=== PATIENT | male | born 1945 | race Caucasian/White ===

== ENCOUNTER 2019-01-11 19:28 | Outpatient (CLI) | payer MEDICARE | END 2019-01-11 19:29 | disposition critical access hospital (66) | LOC: EMS 19:28 | PROVIDERS: ATTEND Surgery | DX: R42 Dizziness and giddiness (principal); L29.9 Pruritus, unspecified; R11.10 Vomiting, unspecified | CPT/HCPCS: A0425; A0427 ==

== ENCOUNTER 2019-01-11 19:51 | Emergency (ER) | payer MEDICARE, OTHER ==
[2019-01-11] MEDS ORDERED: methylPREDNISolone SUCCINATE 125 MG/2 ML VIAL IVP STA (20:16)
--- NOTE | 2019-01-11 20:18 | ED Physician Documentation ---
History of Present Illness - Stated complaint Stated Complaint: ALLERGIC RXN - Chief complaint Chief Complaint: Allergic Rx - History obtained from History obtained from: Patient, Other (pt advocate) - History of Present Illness Timing: Today (For many years he has used injectable bee venom on occasion for arthritic pains. The last time he used it was about 4 months ago. He was gets a local reaction to it. Tonight he had 2 injections near the MCPs of both hands and developed body wide itching and feeling hot all over with runny nose but no throat swelling or shortness of breath. He received Benadryl prior to arrival and now feels back to normal albeit a little sleepy.) Review of Systems Constitutional: denies: Fever, Chills, Myalgias, Fatigue Throat: denies: Sore throat Respiratory: denies: Dyspnea, Cough PD PAST MEDICAL HISTORY - Past Medical History Past Medical History: Yes - Past Surgical History Past Surgical History: No - Present Medications Home Medications: Ambulatory Orders Medication Instructions Recorded Confirmed RX: EPINEPHrine [Epinephrine] 0.3 mg IJ ONCE PRN #2 auto.injct 01/11/19 RX: predniSONE [Deltasone] 60 mg PO DAILY 5 Days tablet 01/11/19 - Allergies Allergies/Adverse Reactions: Allergies Allergy/AdvReac Type Severity Reaction Status Date / Time bee venom protein (honey bee) Allergy Anaphylaxis Verified 01/11/19 19:54 - Social History Does the pt smoke?: No Smoking Status: Former smoker Does the pt drink ETOH?: Yes Does the pt have substance abuse?: No Substance Use and Type: Marijuana - Immunizations Immunizations are current?: Yes PD ED PE NORMAL - Vitals Vital signs reviewed: Yes - General General: Alert and oriented X 3, No acute distress - HEENT HEENT: Ears normal, Pharynx benign - Neck Neck: Supple, no meningeal sign, No bony TTP - Cardiac Cardiac: RRR, No murmur - Respiratory Respiratory: No respiratory distress, Clear bilaterally - Abdomen Abdomen: Non tender - Derm Derm: No rash - Neuro Neuro: Alert and oriented X 3, Normal speech Results - Vitals Vitals: Vital Signs - 24 hr 01/11/19 01/11/19 19:54 20:49 Temperature 36.2 C L 36.6 C Heart Rate 63 56 L Respiratory 16 16 Rate Blood Pressure 118/77 131/73 H O2 Saturation 98 96 Oxygen O2 Source Room air PD MEDICAL DECISION MAKING - ED course ED course: This is a 73-year-old gentleman with mild anaphylaxis to be venom, now completely resolved without symptoms so I do not see any need for epinephrine. Vised him that he should not use this product anymore and we will give him EpiPen in case he is stung by bees. Departure - Departure Disposition: 01 Home, Self Care Clinical Impression: Bee sting allergy Condition: Good Record reviewed to determine appropriate education?: Yes Instructions: ED Allergic Reaction General Other Prescriptions: RX: EPINEPHrine [Epinephrine] 0.3 mg IJ ONCE PRN #2 auto.injct PRN Reason: Allergy Symptoms RX: predniSONE [Deltasone] 60 mg PO DAILY 5 Days tablet Comments: As discussed do not use therapeutic bee venom anymore. Follow-up with your doctor in about a week. Carry the EpiPen with you in case you are stung by bees, if you use the EpiPen seek emergency department care. I always recommend to look up on YouTube some informational videos about how to use an EpiPen to familiarize yourself with it. Discharge Date/Time: 01/11/19 20:45
[2019-01-11 20:53] VITALS: BP 131/73
== END 2019-01-11 20:45 | disposition home or self-care (01) ==
LOC: EDUNIT# → EDSEX → ED 19:51
DX: T63.441A Toxic effect of venom of bees, accidental (unintentional), initial encounter (principal); L29.9 Pruritus, unspecified; R09.89 Other specified symptoms and signs involving the circulatory and respiratory systems; Z87.891 Personal history of nicotine dependence
CPT/HCPCS: 96374; 99283

== ENCOUNTER 2019-02-01 20:18 | Outpatient (CLI) | payer MEDICARE | END 2019-02-01 20:19 | disposition EMS.NT | LOC: EMS 20:18 | PROVIDERS: ATTEND Surgery | DX: R23.2 Flushing (principal) ==

== ENCOUNTER 2019-04-04 21:49 | Emergency (ER) | payer MEDICARE ==
--- NOTE | 2019-04-04 22:09 | ED Physician Documentation ---
History of Present Illness - Stated complaint Stated Complaint: HIGH HR - Chief complaint Chief Complaint: Cardiac - History obtained from History obtained from: Patient - History of Present Illness Timing: Unknown Pain level max: 0 Pain level now: 0 Improved by: rest Worsened by: exertion - Additonal information Additional information: presents due to tachycardia; this was noted incidentally when he had routine podiatry appointment earlier today and HR was 140. In retrospect, patient has been having episodes of PRUITT relieved with rest. He has also had times when, with exertion, he became lightheaded and felt near-syncopal; during these episodes he frequently can feel his pulse is rapid, but he has been asymptomatic at rest and thus not seen a doctor for these symptoms. These episodes have been over the past month. Review of Systems Constitutional: reports: Reviewed and negative Cardiac: reports: Reviewed and negative Respiratory: reports: Dyspnea (PRUITT). denies: Cough, Wheezing GI: reports: Reviewed and negative Skin: reports: Reviewed and negative Musculoskeletal: reports: Reviewed and negative Neurologic: reports: Near syncope. denies: Generalized weakness, Focal weakness, Numbness, Headache PD PAST MEDICAL HISTORY - Past Medical History Past Medical History: No - Past Surgical History Past Surgical History: No - Present Medications Home Medications: Ambulatory Orders Medication Instructions Recorded Confirmed EPINEPHrine [Epinephrine] 0.3 mg IJ ONCE PRN #2 auto.injct 01/11/19 04/04/19 Ascorbic Acid [Vitamin C] 1,000 mg PO 04/04/19 C Clioquinol 3%` 1 applic [place] DAILY 04/04/19 Cholecalciferol (Vitamin D3) 1,000 unit PO 04/04/19 [Vitamin D3] Psyllium Husk [Fiber] 0.4 gm PO DAILY 04/04/19 04/04/19 Aspirin 325 mg PO DAILY #30 tablet 04/05/19 diltiaZEM CD [Cardizem Cd] 120 mg PO DAILY #14 capsule 04/05/19 - Allergies Allergies/Adverse Reactions: Allergies Allergy/AdvReac Type Severity Reaction Status Date / Time bee venom protein (honey bee) Allergy Anaphylaxis Verified 04/04/19 22:04 - Living Situation Living Arrangement: reports: At home - Social History Does the pt smoke?: No Smoking Status: Former smoker Does the pt drink ETOH?: Yes Does the pt have substance abuse?: No - Immunizations Immunizations are current?: Yes PD ED PE NORMAL - Vitals Vital signs reviewed: Yes - General General: Alert and oriented X 3, No acute distress, Well developed/nourished - HEENT HEENT: Moist mucous membranes - Neck Neck: Supple, no meningeal sign - Cardiac Cardiac: No murmur - Respiratory Respiratory: No respiratory distress, Clear bilaterally - Abdomen Abdomen: Soft, Non tender - Derm Derm: Normal color, Warm and dry - Extremities Extremities: No edema - Neuro Neuro: Alert and oriented X 3 PD ED PE EXPANDED - Cardiac Cardiac: Tachy, Regular Rhythm Results - Vitals Vitals: Vital Signs - 24 hr 04/04/19 04/04/19 04/04/19 21:54 22:12 22:25 Temperature 36.6 C Heart Rate 140 H 140 H 121 H Respiratory 16 19 94 H Rate Blood Pressure 125/77 126/98 H O2 Saturation 97 96 19 L 04/04/19 04/04/19 04/04/19 22:29 22:41 22:52 Temperature Heart Rate 141 H 133 H Respiratory 16 16 17 Rate Blood Pressure 111/69 115/78 O2 Saturation 96 95 04/04/19 04/04/19 04/04/19 23:01 23:11 23:45 Temperature 36.6 C Heart Rate 71 71 80 Respiratory 15 17 20 Rate Blood Pressure 105/71 109/67 101/67 O2 Saturation 96 96 97 04/05/19 04/05/19 00:19 00:39 Temperature Heart Rate 77 Respiratory 159 H 16 Rate Blood Pressure 95/73 O2 Saturation 98 Oxygen O2 Source Room air - EKG (time done) No standard instances Rate: Rate (enter#) (141), Tachy Rhythm: Atrial flutter [place]: Normal - Labs Labs: Laboratory Tests 04/04/19 04/04/19 04/04/19 22:05 22:05 22:05 WBC 6.4 RBC 4.74 Hgb 14.8 Hct 45.5 MCV 96.0 H MCH 31.2 H MCHC 32.5 RDW 12.6 Plt Count 213 MPV 9.7 Neut # (Auto) 3.5 Lymph # (Auto) 2.0 Hart # (Auto) 0.7 Eos # (Auto) 0.1 Baso # (Auto) 0.0 Absolute Nucleated RBC 0.00 Nucleated RBC % 0.0 Sodium 142 Potassium 3.9 Chloride 106 Carbon Dioxide 24 Anion Gap 12.0 BUN 21 H Creatinine 1.1 Estimated GFR (MDRD) 66 L Glucose 108 H Calcium 9.5 Total Bilirubin 0.9 AST 31 ALT 25 Alkaline Phosphatase 64 Troponin I < 0.04 Total Protein 7.4 Albumin 4.3 Globulin 3.1 Albumin/Globulin Ratio 1.4 Lipase 31 TSH 04/04/19 22:10 WBC RBC Hgb Hct MCV MCH MCHC RDW Plt Count MPV Neut # (Auto) Lymph # (Auto) Hart # (Auto) Eos # (Auto) Baso # (Auto) Absolute Nucleated RBC Nucleated RBC % Sodium Potassium Chloride Carbon Dioxide Anion Gap BUN Creatinine Estimated GFR (MDRD) Glucose Calcium Total Bilirubin AST ALT Alkaline Phosphatase Troponin I Total Protein Albumin Globulin Albumin/Globulin Ratio Lipase TSH 2.18 - Rads (name of study) chest xray Radiology: Prelim report reviewed, See rad report PD MEDICAL DECISION MAKING - ED course Complexity details: reviewed results, re-evaluated patient, considered differential, d/w patient ED course: After 15mg IV cardizem, patient's rate dropped to mid 70s with normal blood pressure but clearly remains in atrial flutter on monitor ("saw-tooth" waveform). He remained asymptomatic during ED stay. I discussed the case with Dr. Abel (cardiology at [facility]; patient has not yet seen cardiology but he says he has d/w his PMD that he wants to be seen by Dr. Lr and expects a referral shortly). Dr. Abel recommends QD Aspirin and cardizem but recommends hold off on anticoagulants at this time unless patient has h/o CVA (he does not). Departure - Departure Disposition: 01 Home, Self Care Clinical Impression: Atrial flutter Qualifiers: Atrial flutter type: typical Qualified Code(s): I48.3 - Typical atrial flutter Condition: Good Health Concerns: rapid heart rate Plan of Treatment: medication to minimize abnormally elevated heart rate. aspirin to provide mild protection against blood clots. follow up with cardiology, return if worse Care Goals: improvement in heart rate to normal rate Assessment: patient comfortable with discharge plan, will follow up by end of week and return to ED if worse Instructions: ED Paroxysmal Atrial Flutter Follow-Up: Colton Jernigan MD [Primary Care Provider] - Prescriptions: Aspirin 325 mg PO DAILY #30 tablet diltiaZEM CD [Cardizem Cd] 120 mg PO DAILY #14 capsule Discharge Date/Time: 04/05/19 00:40
[2019-04-04 22:21] LABS: BASOPHILS % (AUTO) 0.6 %; EOSINOPHILS # (AUTO) 0.1 10^3/uL (0.0-0.7); EOSINOPHILS % (AUTO) 2.2 %; HGB - HEMOGLOBIN 14.8 g/dL (14.0-18.0); LYMPHOCYTES % (AUTO) 31.5 %; MEAN CORPUSCULAR HEMOGLOBIN 31.2 pg (27.0-31.0); MEAN CORPUSCULAR HGB CONC 32.5 g/dL (32.0-36.0); MEAN PLATELET VOLUME 9.7 fL (7.4-11.4); MONOCYTES # (AUTO) 0.7 10^3/uL (0.0-1.0); MONOCYTES % (AUTO) 11.5 %; NEUTROPHILS # (AUTO) 3.5 10^3/uL (1.5-6.6); NEUTROPHILS % (AUTO) 53.9 %; PLT - PLATELET COUNT 213 10^3/uL (130-450); RED BLOOD COUNT 4.74 10^6/uL (4.70-6.10); RED CELL DISTRIBUTION WIDTH 12.6 % (12.0-15.0); WHITE BLOOD COUNT 6.4 x10^3/uL (4.8-10.8)
[2019-04-04] MEDS ORDERED: diltiaZEM INJ 5 MG/ML VIAL IVP STA (22:34)
[2019-04-04 22:36] LABS: ALBUMIN 4.3 g/dL (3.2-5.5); ALBUMIN/GLOBULIN RATIO 1.4 (1.0-2.2); BILIRUBIN,TOTAL 0.9 mg/dL (0.2-1.0); CALCIUM 9.5 mg/dL (8.5-10.3); CREATININE 1.1 mg/dL (0.6-1.2); TOTAL PROTEIN 7.4 g/dL (6.7-8.2)
--- NOTE | 2019-04-04 23:20 | XRAY Report ---
Reason: palpitations, tachycardia Procedure Date: 04/04/2019 Accession Number: [id number] / [id number] Procedure: XR - Chest 2 View X-Ray CPT Code: 67637 FULL RESULT: EXAM: CHEST RADIOGRAPHY EXAM DATE: 04/04/2019 10:55 PM. CLINICAL HISTORY: Palpitations, tachycardia. COMPARISON: None. TECHNIQUE: 2 views. FINDINGS: Lungs/Pleura: No focal opacities evident. No pleural effusion. No pneumothorax. Normal volumes. Mediastinum: Heart and mediastinal contours are unremarkable. Other: None. IMPRESSION: Normal 2-view chest radiography. RADIA
[2019-04-05 00:20] VITALS: BP 95/73
[2019-04-05] MEDS ORDERED: ASPIRIN CHEW 81 MG TABLET PO STA (00:20)
== END 2019-04-05 00:40 | disposition home or self-care (01) ==
LOC: ED 21:49
DX: I48.3 Typical atrial flutter (principal); Z87.891 Personal history of nicotine dependence
CPT/HCPCS: 36415; 71046; 83690; 84484; 96374; 99283; 99284; A9270; 80053; 84443; 85025; 93005

== ENCOUNTER 2019-04-05 13:09 | Emergency (ER) | payer MEDICARE ==
--- NOTE | 2019-04-05 13:52 | ED Physician Documentation ---
History of Present Illness - Stated complaint Stated Complaint: ATRIAL FLUTTER - Chief complaint Chief Complaint: Cardiac - History obtained from History obtained from: Patient - History of Present Illness Timing: Yesterday Pain level max: 0 Pain level now: 0 - Additonal information Additional information: found to be in new onset a. flutter last night. Asymptomatic currently but on checking his pulse, it was 140 this am. Took 120mg Cardizem ER, but no change so returned to the ED. Awaiting PCP appointment for cardiology referral. Review of Systems Ten Systems: 10 systems reviewed and negative Constitutional: denies: Fever, Chills Ears: denies: Ear pain Nose: denies: Rhinorrhea / runny nose, Congestion Cardiac: denies: Chest pain / pressure Respiratory: denies: Dyspnea, Cough, Wheezing GI: denies: Abdominal Pain, Nausea, Vomiting, Diarrhea Skin: denies: Rash Musculoskeletal: denies: Neck pain, Back pain Neurologic: denies: Headache PD PAST MEDICAL HISTORY - Past Medical History Cardiovascular: None Respiratory: None Neuro: None Endocrine/Autoimmune: None GI: None : None HEENT: None Psych: None Musculoskeletal: None Derm: None - Past Surgical History Past Surgical History: Yes Derm: Skin cancer surgery - Present Medications Home Medications: Ambulatory Orders Medication Instructions Recorded Confirmed EPINEPHrine [Epinephrine] 0.3 mg IJ ONCE PRN #2 auto.injct 01/11/19 04/04/19 Ascorbic Acid [Vitamin C] 1,000 mg PO 04/04/19 C Clioquinol 3%` 1 applic [place] DAILY 04/04/19 Cholecalciferol (Vitamin D3) 1,000 unit PO 04/04/19 [Vitamin D3] Psyllium Husk [Fiber] 0.4 gm PO DAILY 04/04/19 04/04/19 Aspirin 325 mg PO DAILY #30 tablet 04/05/19 Diltiazem HCl [Diltiazem 24Hr ER] 240 mg PO DAILY #14 cap.sa.24h 04/05/19 diltiaZEM CD [Cardizem Cd] 120 mg PO DAILY #14 capsule 04/05/19 - Allergies Allergies/Adverse Reactions: Allergies Allergy/AdvReac Type Severity Reaction Status Date / Time bee venom protein (honey bee) Allergy Anaphylaxis Verified 04/05/19 13:19 - Social History Does the pt smoke?: No Smoking Status: Never smoker Does the pt drink ETOH?: Yes Does the pt have substance abuse?: No - Immunizations Immunizations are current?: Yes - POLST Patient has POLST: No PD ED PE NORMAL - Vitals Vital signs reviewed: Yes - General General: Alert and oriented X 3, No acute distress, Well developed/nourished - HEENT HEENT: PERRL, Moist mucous membranes - Neck Neck: Supple, no meningeal sign - Cardiac Cardiac: Strong equal pulses, Other (irregular) - Respiratory Respiratory: No respiratory distress, Clear bilaterally - Abdomen Abdomen: Soft, Non tender, Non distended - Derm Derm: Warm and dry, No rash - Extremities Extremities: No edema - Neuro Neuro: Alert and oriented X 3 - Psych Psych: Normal mood, Normal affect Results - Vitals Vitals: Vital Signs - 24 hr 04/05/19 04/05/19 04/05/19 13:14 13:37 14:35 Temperature 36.6 C Heart Rate 61 137 H Respiratory 16 Rate Blood Pressure 116/81 H 105/75 Blood Pressure 120/74 [Right] O2 Saturation 97 98 04/05/19 15:32 Temperature Heart Rate 98 Respiratory 18 Rate Blood Pressure 132/75 H Blood Pressure [Right] O2 Saturation 97 Oxygen O2 Source Room air - EKG (time done) 1314 Rate: Rate (enter#) (130) Rhythm: Atrial flutter (2:1) [place]: Normal QRS: Normal Ischemia: Q waves (III, aVF) PD MEDICAL DECISION MAKING - ED course Complexity details: reviewed old records, reviewed results, re-evaluated patient, considered differential, d/w patient, d/w family ED course: HR controlled in the ED. Will increase his diltiazem to 240 mg daily. He is asymptomatic. The patient and his requested transfer to [place] in [place], I did call [place] [facility] but no callback was received prior to discharge. As he was feeling better and his heart rate was controlled, the patient and his decided to go home at this time. They will follow-up with his doctor tomorrow for an echocardiogram and Holter monitor before his cardiology appointment on April 26. Will return if he worsens. He is not short of breath. Not dizzy. No chest pain. Patient and family counseled regarding signs and symptoms for which I believe and urgent re-evaluation would be necessary. Patient with good understanding of and agreement to plan and is comfortable going home at this time This document was made in part using voice recognition software. While efforts are made to proofread this document, sound alike and grammatical errors may occur. Departure - Departure Disposition: 01 Home, Self Care Clinical Impression: Atrial flutter Qualifiers: Atrial flutter type: unspecified Qualified Code(s): I48.92 - Unspecified atrial flutter Condition: Stable Health Concerns: Inc HR Plan of Treatment: Increase diltiazem to 240mg daily Care Goals: Rate control Assessment: HR controlled Instructions: ED Paroxysmal Atrial Flutter Follow-Up: Colton Jernigan MD [Primary Care Provider] - Lilly Lr MD [Provider Admit Priv/Credential] - Within 1 week Prescriptions: Diltiazem HCl [Diltiazem 24Hr ER] 240 mg PO DAILY #14 cap.sa.24h Comments: Increase the diltiazem to 240 mg by mouth daily. Return if he worsens. Follow- up with cardiology for further care. Discharge Date/Time: 04/05/19 15:40
[2019-04-05 15:40] VITALS: BP 132/75
== END 2019-04-05 15:40 | disposition home or self-care (01) ==
LOC: ED 13:09
DX: I48.3 Typical atrial flutter (principal); Z87.891 Personal history of nicotine dependence
CPT/HCPCS: 36415; 71046; 83690; 84484; 93005; 96374; 99283; 99284; A9270; 80053; 84443; 85025

== ENCOUNTER 2020-01-14 07:30 | Outpatient (CLI) | payer MEDICARE ==
--- NOTE | 2020-01-14 08:18 | Ultrasound Report ---
Reason: SCREENING FOR AAA Procedure Date: 01/14/2020 Accession Number: [id number] / [id number] Procedure: US - Aorta Screening CPT Code: Final Report FULL RESULT: EXAM: AORTIC DOPPLER ULTRASOUND EXAM DATE: 01/14/2020 07:48 AM. CLINICAL HISTORY: Screening for AAA. COMPARISON: Abdomen ultrasound 03/20/2012. TECHNIQUE: Real-time sonographic imaging of retroperitoneal vascular structures, including color-flow, Doppler flow and spectral analysis was performed by the scientist. Multiple support representative static images were saved for review. FINDINGS: Aorta: The abdominal aorta was adequately visualized. No evidence for abdominal aortic aneurysm. Aorta: Proximal: Sagittal AP 2.8 cm. Mid: Transverse 2.4 x 2.6 cm. Distal: Transverse 2.0 x 2.3 cm. Caliber: WNL: Yes. Plaque visualized: Yes. Iliacs: Right Iliac: Transverse 1.5 x 1.6 cm. Left Iliac: Transverse 1.7 x 1.7 cm. Iliac Vessels: The visualized proximal common iliac arteries are normal in caliber. Other: None. IMPRESSION: No abdominal aortic aneurysm. RADIA
== END 2020-01-14 07:31 | disposition home or self-care (01) ==
LOC: DI 07:30
PROVIDERS: ATTEND Family Medicine
DX: Z13.6 Encounter for screening for cardiovascular disorders (principal)
CPT/HCPCS: 76706

== ENCOUNTER 2021-05-20 20:06 | Emergency (ER) | payer MEDICARE ==
[2021-05-20] MEDS ORDERED: BUFFERED LIDOCAINE 10 ML SYRINGE SUBQ STA (20:11)
[2021-05-20] MEDS ORDERED: TETANUS/DIPHTHERIA/PERTUSSIS 0.5 ML SYRINGE IM ONE (20:12)
[2021-05-20] MEDS ORDERED: BACITRACIN ZINC OINT 1 PACKET TOP STA (20:43)
[2021-05-20] MEDS ORDERED: DOXYCYCLINE 100 MG TABLET PO STA (20:47)
--- NOTE | 2021-05-20 20:47 | ED Physician Documentation ---
History of Present Illness - Stated complaint Stated Complaint: FISHOOK IN FINGERS - Chief complaint Chief Complaint: Laceration - Additonal information Additional information: 75-year-old male presents the emergency department for evaluation of a fishhook that became embedded in Distal fat pads of his right middle and ring fingers. This was a treble hook. Uncertain of last tetanus. Patient attempted to remove the hooks from his fingers at home but was unsuccessful secondary to pain. Review of Systems Constitutional: reports: Reviewed and negative Nose: reports: Reviewed and negative Throat: reports: Reviewed and negative Cardiac: reports: Reviewed and negative Respiratory: reports: Reviewed and negative GI: reports: Reviewed and negative : reports: Reviewed and negative Skin: reports: Other ([place] embedded in fat pad of right middle and ring finger) Musculoskeletal: reports: Reviewed and negative PD PAST MEDICAL HISTORY - Past Medical History Past Medical History: Yes Cardiovascular: None Respiratory: None Neuro: None Endocrine/Autoimmune: None GI: None : Benign prostate hypertrophy HEENT: None Psych: None Musculoskeletal: None Derm: None Other Past Medical History: A flutter - Past Surgical History Past Surgical History: Yes Derm: Skin cancer surgery - Present Medications Home Medications: Ambulatory Orders Medication Instructions Recorded Confirmed EPINEPHrine [Epinephrine] 0.3 mg IJ ONCE PRN #2 auto.injct 01/11/19 04/04/19 Ascorbic Acid [Vitamin C] 1,000 mg PO 04/04/19 C Clioquinol 3%` 1 applic [place] DAILY 04/04/19 Cholecalciferol (Vitamin D3) 1,000 unit PO 04/04/19 [Vitamin D3] Psyllium Husk [Fiber] 0.4 gm PO DAILY 04/04/19 04/04/19 Aspirin 325 mg PO DAILY #30 tablet 04/05/19 Diltiazem HCl [Diltiazem 24Hr ER] 240 mg PO DAILY #14 cap.sa.24h 04/05/19 diltiaZEM CD [Cardizem Cd] 120 mg PO DAILY #14 capsule 04/05/19 Doxycycline Hyclate 100 mg PO BID #14 05/20/21 - Allergies Allergies/Adverse Reactions: Allergies Allergy/AdvReac Type Severity Reaction Status Date / Time bee venom protein (honey bee) Allergy Anaphylaxis Verified 04/05/19 13:19 - Social History Does the pt smoke?: No Smoking Status: Never smoker Does the pt drink ETOH?: Yes Does the pt have substance abuse?: Yes Substance Use and Type: Marijuana - Immunizations Immunizations are current?: No - POLST Patient has POLST: No PD ED PE EXPANDED - Derm Derm: Other (Mcmurray embedded in both the fat pad of the right middle and long finger.) Results - Vitals Vitals: Vital Signs - 24 hr 05/20/21 20:08 Temperature 36.5 C Heart Rate 73 Respiratory 16 Rate Blood Pressure 128/70 O2 Saturation 95 Oxygen O2 Source Room air Procedures - FB removal FB location: Subcutaneous FB removal preparation: Local anesthesia-specify Removal method: Foreceps FB removal aftercare: No complications, Patient tolerated well, Removed succes sfully PD MEDICAL DECISION MAKING - ED course Complexity details: d/w patient, d/w family (75-year-old male presents the emergency department for) ED course: 75-year-old male presents the emergency department for removal of a treble hook caught in both the middle and ring finger fat pads of his right hand. After local anesthesia was delivered the hooks were removed with forceps. However given that these had been in salt water for most of the day will prescribe doxycycline to help prevent salt water infection as it is not possible to properly irrigate these wounds. Tetanus was updated today routine wound care and bacitracin applied. Emergent return precautions were discussed for concerns of infection. Departure - Departure Disposition: 01 Home, Self Care Clinical Impression: Fish hook injury of finger of right hand Qualifiers: Encounter type: initial encounter Qualified Code(s): S69.91XA - Unspecified injury of right wrist, hand and finger(s), initial encounter Condition: Stable Record reviewed to determine appropriate education?: Yes Prescriptions: Doxycycline Hyclate 100 mg PO BID #14 Comments: Braden your fingers will feel very uncomfortable for the next few days. You can wash them normally, apply any antibiotic ointment such as bacitracin or Neosporin and a simple bandage. Given the amount of time that the hooks were in your finger as well as exposure to sea water I would like to start you on a course of antibiotics doxycycline that you are to take twice daily. If at any point you have concerns of infection in the fingers such as increased pain redness milky drainage or red streaking then please return to the ER for a second look.
[2021-05-20 20:58] VITALS: BP 120/61
== END 2021-05-20 21:06 | disposition home or self-care (01) ==
LOC: ED 20:06
DX: S61.232A Puncture wound without foreign body of right middle finger without damage to nail, initial encounter (principal); S61.234A Puncture wound without foreign body of right ring finger without damage to nail, initial encounter; W26.8XXA Contact with other sharp object(s), not elsewhere classified, initial encounter; Z23 Encounter for immunization
CPT/HCPCS: 90471; 90715; 99281; 99283; A9270

== ENCOUNTER 2024-01-27 10:43 | Outpatient (CLI) | payer MEDICARE ==
--- NOTE | 2024-01-27 11:25 | XRAY Report ---
PROCEDURE: Shoulder 2+V RT INDICATIONS: SHOULDER JOIN PAIN TECHNIQUE: 3 views of the shoulder were acquired. COMPARISON: None. FINDINGS: Bones: No fractures or dislocations. Mild degenerative changes of the glenohumeral and acromioclavic ular joints. No suspicious bony lesions. Visualized ribs appear intact. Soft tissues: Calcification adjacent to the superolateral humeral head. The visualized lungs are wi thin normal limits. IMPRESSION: 1.No acute bony abnormality. 2.Mild degenerative changes of the shoulder. 3.Calcific tendinitis of the rotator cuff. Reviewed by: Jose Ogden MD on 01/27/2024 11:24 AM PDT Approved by: Jose Ogden MD on 01/27/2024 11:24 AM PDT Station ID: [id number]
== END 2024-01-27 10:44 | disposition home or self-care (01) ==
LOC: DI.S 10:43
PROVIDERS: ATTEND Registered Nurse
DX: M19.011 Primary osteoarthritis, right shoulder (principal); M75.31 Calcific tendinitis of right shoulder

== ENCOUNTER 2024-03-19 08:06 | Outpatient (CLI) | payer MEDICARE ==
--- NOTE | 2024-03-20 16:16 | MRI Report ---
PROCEDURE: Shoulder RT WO INDICATIONS: PAIN IN R SHOULDER TECHNIQUE: Noncontrast oblique coronal T2 fast spin echo with fat saturation, oblique sagittal T1 spin echo and T2 fast spin echo with fat saturation, axial T1 spin echo and T2 fast spin echo with fat saturation t hrough the shoulder. COMPARISON: X-ray right shoulder, 01/27/2024. FINDINGS: Image quality: Excellent. Rotator cuff: There is full-thickness tear of the supraspinatus and infraspinatus tendons with tendon retraction to the musculotendinous junction. There is associated intramuscular edema consistent with associated muscle strain. No significant supraspinous or infraspinous muscle atrophy. There is moderate subscapularis tendinosis. No high-grade tendon tear. Bones and bursae: No bone marrow contusions or fractures. Moderate acromioclavicular and glenohumera l joint degeneration. The acromion demonstrates conventional anatomy, without an os acromiale. Moder ate glenohumeral joint effusion. Capsule and soft tissues: There is degenerative tearing in the anterior and superior labrum. The gle nohumeral ligaments appear intact. Mild tendinosis of the intra-articular segment of the long head of the biceps tendon which demonstrates normal location and morphology. The rotator interval appears n ormal, without fibrosis. The coracohumeral ligament is normal in thickness. IMPRESSION: 1. Full -thickness tear of the supraspinatus and infraspinatus tendons with tendon retraction and ass ociated muscle strain. No significant supraspinous or infraspinous muscle atrophy. 2. Moderate subscapularis tendinosis. 3. Mild tendinosis of the long head of the biceps. 4. Moderate acromioclavicular and glenohumeral joint degeneration. 5. Moderate glenohumeral joint effusion. 6. Degenerative labral tearing. Reviewed by: Debra Michelle MD on 03/20/2024 4:15 PM PDT Approved by: Debra Michelle MD on 03/20/2024 4:15 PM PDT Station ID: [id number]
== END 2024-03-19 08:07 | disposition home or self-care (01) ==
LOC: DI 08:06
PROVIDERS: ATTEND Registered Nurse
DX: M75.121 Complete rotator cuff tear or rupture of right shoulder, not specified as traumatic (principal); M19.011 Primary osteoarthritis, right shoulder; M67.921 Unspecified disorder of synovium and tendon, right upper arm; M24.111 Other articular cartilage disorders, right shoulder; M25.411 Effusion, right shoulder

== ENCOUNTER 2024-07-05 15:53 | Outpatient (CLI) | payer MEDICARE ==
--- NOTE | 2024-07-05 20:42 | XRAY Report ---
PROCEDURE: Hip w/Pelvis 2-3V RT INDICATIONS: RT HIP PAIN TECHNIQUE: 2 views of the hip were acquired. COMPARISON: None. FINDINGS: Bones: No fractures or dislocations. Moderate right worse than left bilateral hip joint osteoarthrit ic changes are seen. No evidence of avascular necrosis of femoral head. No suspicious bony lesions. Soft tissues: No suspicious soft tissue calcifications or masses. IMPRESSION: No acute pelvic or hip fracture. Moderate right worse than left bilateral hip joint osteoarthritis. N o evidence of avascular necrosis. Reviewed by: Bony Rosa MD on 07/05/2024 8:41 PM PDT Approved by: Bony Rosa MD on 07/05/2024 8:41 PM PDT Station ID: [id number]
== END 2024-07-05 15:54 | disposition home or self-care (01) ==
LOC: DI.S 15:53
DX: M16.0 Bilateral primary osteoarthritis of hip (principal)